=== PATIENT | male | born 1995 | race African-American/Black ===

== ENCOUNTER 2024-06-10 10:13 | Emergency (ER) | payer OTHER ==
[~2024-06-10] VITALS: Ht 188 cm; Wt 72.5 kg
[2024-06-10 10:39] VITALS: O2SAT 100
[2024-06-10 11:50] LABS: BASOPHILS % 0.1 % (0.0-2.0); DIFFERENTIAL COMMENT 0; EOSINOPHILS % 0.6 % (0.0-5.0); HEMATOCRIT. 42.4 % (42.0-52.0); HEMOGLOBIN. 13.3 g/dL (14.0-18.0); LYMPHOCYTES % 27.7 % (20.0-50.0); MEAN CORPUSCULAR HGB CONC 31.4 g/dL (31.0-37.0); MEAN CORPUSCULAR VOLUME 76.6 fL (80.0-94.0); MEAN PLATELET VOLUME 8.5 fl (7.4-10.4); MONOCYTES % 9.7 % (2.0-8.0); NEUTROPHILS % 61.9 % (40.0-76.0); PLATELET 284 x1000/uL (130-400); RED BLOOD CELL COUNT 5.54 mill/uL (4.7-6.1); RED CELL DISTRIBUTION WIDTH 15.4 % (11.6-14.6)
[2024-06-10 11:52] LABS: PARTIAL THROMBOPLASTIN TIME 32.5 sec (23.4-31.0); PROTHROMBIN TIME 11.1 sec (9.6-11.0)
[2024-06-10] MEDS: ACETAMINOPHEN 1000MG/100ML 100 ML IV ONE (17:57)
[2024-06-10 18:37] LABS: CHLORIDE 104 mEq/L (98-107); POTASSIUM 4.1 mEq/L (3.5-5.1); SODIUM 139 mEq/L (136-145)
[2024-06-10 18:38] LABS: CALCIUM 9.7 mg/dL (8.7-10.4); CARBON DIOXIDE 28 mEq/L (21-32)
[2024-06-10 18:42] LABS: CREATININE 0.8 mg/dL (0.6-1.3)
[2024-06-10 18:43] LABS: GLUCOSE 85 mg/dL (70-105); UREA NITROGEN BLOOD 13 mg/dL (9-23)
[2024-06-10 21:48] VITALS: TEMP 36.61404; O2SAT 100
[2024-06-10 21:49] VITALS: BP 110/66; PULSE 83; RESP 16; TEMP 97.9
[2024-06-10] MEDS ORDERED: TRAM50TA3 MT (21:54)
[2024-06-10] MEDS ORDERED: IOHEXOL-300 100 ML BOTTLE ONE (23:48)
== END 2024-06-10 22:42 | disposition home or self-care (01) ==
LOC: ER 10:13 → EDBEDREQ 18:59 → EDBEDREQTM 20:14 → EDBEDREQ 20:14 → ER 22:42
DX: S70.12XA Contusion of left thigh, initial encounter (principal); M79.605 Pain in left leg; Z88.6 Allergy status to analgesic agent; Z88.5 Allergy status to narcotic agent; W18.39XA Other fall on same level, initial encounter; Y93.89 Activity, other specified; Y92.89 Other specified places as the place of occurrence of the external cause; Y99.8 Other external cause status
CPT/HCPCS: 80048; 85025; 85610; 85730; 86850; 86900; 86901; 36415; 74177; 96365; 99285; Q9967; Z7610; J0131